=== PATIENT | male | born 1975 | race Two or more races ===

== ENCOUNTER 2019-05-03 06:22 | Emergency (ER) | payer OTHER ==
--- NOTE | 2019-05-03 07:15 | EDM.PDOC ---
ED HPI GENERAL MEDICAL PROBLEM - General Chief Complaint: Flank Pain Stated Complaint: flank pain Time Seen by Provider: 05/03/19 07:00 Source of Information: Reports: Patient History Limitations: Reports: No Limitations - History of Present Illness INITIAL COMMENTS - FREE TEXT/NARRATIVE: Patient comes to ER for flank pain on right. STarted one week ago while he was working on a car. Constant over the week, did not move in location. No radiation of pain. This morning became severely sharp/worst pain he has ever had. Arrived to ER, went to bathroom to give UA sample. Pain started to improve significantly while he was urinating. Mild nausea, no emesis. Small amount loose stool last night. No fevers/chills. No other accompanying symptoms over the week. Denies significant past medical history. No hematuria/frequency noted. No history of kidney stones. Eating/drinking do not appear to have significant impact on the pain. No change in pain with bowel movements. Changing body position/movement does not impact pain level. Right Flank Pain Score (Numeric/FACES): 9 - Related Data Allergies Allergy/AdvReac Type Severity Reaction Status Date / Time No Known Allergies Allergy Verified 05/03/19 06:33 Home Meds: Home Meds . [No Known Home Meds] 05/03/19 [History] Past Medical History Musculoskeletal History: Reports: Other (See Below) (history of herniated disc/ back surgery) Social & Family History - Tobacco Use Smoking Status *Q: Current Every Day Smoker - Caffeine Use Caffeine Use: Reports: Soda - Alcohol Use Alcohol Use History: Yes Days Per Week of Alcohol Use: 7 - Recreational Drug Use Recreational Drug Type: Reports: Marijuana/Hashish ED ROS GENERAL - Review of Systems Review Of Systems: ROS reveals no pertinent complaints other than HPI. ED EXAM, GENERAL - Physical Exam Exam: See Below Exam Limited By: No Limitations General Appearance: Alert, WD/WN, No Apparent Distress Eye Exam: Bilateral Eye: EOMI, PERRL Nose: No: Nasal Deformity, Nasal Swelling, Nasal Drainage Throat/Mouth: Normal Inspection, Normal Voice, No Airway Compromise Head: Atraumatic, Normocephalic Neck: Supple, Non-Tender, Full Range of Motion Respiratory/Chest: No Respiratory Distress, Lungs Clear, Normal Breath Sounds, No Accessory Muscle Use, Chest Non-Tender Cardiovascular: Regular Rate, Rhythm, No Murmur GI/Abdominal: Normal Bowel Sounds, Soft, Non-Tender, No Distention, No Abnormal Bruit (Male) Exam: Deferred Rectal (Males) Exam: Deferred Back Exam: No: CVA Tenderness (L), CVA Tenderness (R), Muscle Spasm, Paraspinal Tenderness, Vertebral Tenderness Extremities: Normal Inspection, Normal Capillary Refill Neurological: Alert, Oriented, Normal Cognition, Normal Gait, No Motor/Sensory Deficits Psychiatric: Normal Affect, Normal Mood Skin Exam: Warm, Dry, Intact, Normal Color Course - Vital Signs Last Recorded V/S: Last Vital Signs Temp 36.6 C 05/03/19 06:23 Pulse 72 05/03/19 06:23 Resp 24 H 05/03/19 06:23 BP 112/73 05/03/19 06:23 Pulse Ox 99 05/03/19 06:23 - Orders/Labs/Meds Orders: Active Orders 24 hr Category Date Time Status Abdomen Pelvis w Cont [CT] Stat Exams 05/03/19 09:07 Taken Abdomen Pelvis wo Cont [CT] Stat Exams 05/03/19 07:09 Taken Sodium Chloride 0.9% [Saline Flush] Med 05/03/19 07:29 Active 10 ml FLUSH ASDIRECTED PRN Saline Lock Insert [OM.PC] Routine Oth 05/03/19 07:29 Ordered Medication Orders Sodium Chloride (Saline Flush) 10 ml FLUSH ASDIRECTED PRN PRN Reason: Keep Vein Open Last Admin: 05/03/19 07:45 Dose: 10 ml Labs: Laboratory Tests 05/03/19 05/03/19 05/03/19 Range/Units 06:42 06:50 06:50 WBC 7.1 (4.0-10.2) K/uL RBC 5.58 H (4.33-5.41) M/uL Hgb 15.4 (13.1-16.8) g/dL Hct 45.7 (39.0-49.0) % MCV 81.9 L (84.0-98.0) fL MCH 27.6 L (28.2-33.3) pg MCHC 33.7 (31.7-36.0) g/dL RDW 13.7 (11.2-14.1) % Plt Count 179 (150-350) K/uL Neut % (Auto) 62.8 (45.0-80.0) % Lymph % (Auto) 27.9 (10.0-50.0) % Sunflower % (Auto) 7.5 (2.0-14.0) % Eos % (Auto) 1.5 (0.0-5.0) % Baso % (Auto) 0.3 (0.0-2.0) % Neut # (Auto) 4.46 (1.40-7.00) K/uL Lymph # (Auto) 1.98 (0.50-3.50) K/uL Sunflower # (Auto) 0.53 (0.00-1.00) K/uL Eos # (Auto) 0.11 (0.00-0.50) K/uL Baso # (Auto) 0.02 (0.00-0.20) K/uL Sodium 141 (136-145) mmol/L Potassium 3.7 (3.5-5.1) mmol/L Chloride 105 (98-107) mmol/L Carbon Dioxide 28.0 (21.0-32.0) mmol/L BUN 17 (7-18) mg/dL Creatinine 0.96 (0.51-1.17) mg/dL Est Cr Clr Drug Dosing 103.49 mL/min Estimated GFR (MDRD) > 60 mL/min Glucose 113 H (74-106) mg/dL Lactic Acid (0.4-2.0) mmol/L Calcium 8.7 (8.5-10.1) mg/dL Total Bilirubin 0.6 (0.2-1.0) mg/dL AST 22 (15-37) U/L ALT 30 (12-78) U/L Alkaline Phosphatase 74 (46-116) IU/L Total Protein 7.1 (6.4-8.2) g/dL Albumin 3.8 (3.4-5.0) g/dL Specimen Type Urinblad Urine Color Yellow Urine Appearance Clear Urine pH 5.5 (5.0-9.0) Ur Specific [place] 1.025 (1.005-1.030) Urine Protein Negative (NEGATIVE) mg/dL Urine Glucose (UA) Negative (NEGATIVE) mg/dL Urine Ketones Negative (NEGATIVE) mg/dL Urine Occult Blood Small H (NEGATIVE) Urine Nitrite Negative (NEGATIVE) Urine Bilirubin Negative (NEGATIVE) Urine Urobilinogen 0.2 (0.2-1.0) E.U./dL Ur Leukocyte Esterase Negative (NEGATIVE) Urine RBC 0-5 /HPF Urine WBC 0-5 /HPF Ur Epithelial Cells Few /LPF Amorphous Sediment Moderate H (0/HPF) /HPF Urine Bacteria Rare (NONE TO FEW) /HPF Urine Mucus Moderate H (NEGATIVE) /LPF 05/03/19 Range/Units 06:50 WBC (4.0-10.2) K/uL RBC (4.33-5.41) M/uL Hgb (13.1-16.8) g/dL Hct (39.0-49.0) % MCV (84.0-98.0) fL MCH (28.2-33.3) pg MCHC (31.7-36.0) g/dL RDW (11.2-14.1) % Plt Count (150-350) K/uL Neut % (Auto) (45.0-80.0) % Lymph % (Auto) (10.0-50.0) % Sunflower % (Auto) (2.0-14.0) % Eos % (Auto) (0.0-5.0) % Baso % (Auto) (0.0-2.0) % Neut # (Auto) (1.40-7.00) K/uL Lymph # (Auto) (0.50-3.50) K/uL Sunflower # (Auto) (0.00-1.00) K/uL Eos # (Auto) (0.00-0.50) K/uL Baso # (Auto) (0.00-0.20) K/uL Sodium (136-145) mmol/L Potassium (3.5-5.1) mmol/L Chloride (98-107) mmol/L Carbon Dioxide (21.0-32.0) mmol/L BUN (7-18) mg/dL Creatinine (0.51-1.17) mg/dL Est Cr Clr Drug Dosing mL/min Estimated GFR (MDRD) mL/min Glucose (74-106) mg/dL Lactic Acid 0.9 (0.4-2.0) mmol/L Calcium (8.5-10.1) mg/dL Total Bilirubin (0.2-1.0) mg/dL AST (15-37) U/L ALT (12-78) U/L Alkaline Phosphatase (46-116) IU/L Total Protein (6.4-8.2) g/dL Albumin (3.4-5.0) g/dL Specimen Type Urine Color Urine Appearance Urine pH (5.0-9.0) Ur Specific [place] (1.005-1.030) Urine Protein (NEGATIVE) mg/dL Urine Glucose (UA) (NEGATIVE) mg/dL Urine Ketones (NEGATIVE) mg/dL Urine Occult Blood (NEGATIVE) Urine Nitrite (NEGATIVE) Urine Bilirubin (NEGATIVE) Urine Urobilinogen (0.2-1.0) E.U./dL Ur Leukocyte Esterase (NEGATIVE) Urine RBC /HPF Urine WBC /HPF Ur Epithelial Cells /LPF Amorphous Sediment (0/HPF) /HPF Urine Bacteria (NONE TO FEW) /HPF Urine Mucus (NEGATIVE) /LPF Meds: Medications Generic Name Dose Route Start Last Admin Trade Name Freq PRN Reason Stop Dose Admin Sodium Chloride 10 ml 05/03/19 07:29 05/03/19 07:45 Saline Flush FLUSH 10 ml ASDIRECTED PRN Administration Keep Vein Open Discontinued Medications Generic Name Dose Route Start Last Admin Trade Name Freq PRN Reason Stop Dose Admin Diatrizoate Meglum/Diatrizoate Sod 30 ml 05/03/19 09:25 05/03/19 10:27 Gastrografin 37% PO 05/03/19 09:26 30 ml ONETIME ONE Administration Sodium Chloride 1,000 mls @ 999 mls/hr 05/03/19 07:31 05/03/19 07:38 Normal Saline IV 05/03/19 08:31 999 mls/hr .BOLUS ONE Administration Iopamidol 100 ml 05/03/19 10:25 05/03/19 10:27 Isovue-300 (61%) IVPUSH 05/03/19 10:26 100 ml ONETIME ONE Administration Ketorolac Tromethamine 10 mg 05/03/19 07:17 05/03/19 11:09 Toradol PO 05/03/19 07:18 Not Given ONETIME ONE Ketorolac Tromethamine 30 mg 05/03/19 07:30 05/03/19 07:43 Toradol IVPUSH 05/03/19 07:31 30 mg ONETIME ONE Administration Morphine Sulfate 2 mg 05/03/19 09:10 Morphine IVPUSH 05/03/19 09:11 ONETIME ONE Ondansetron HCl 4 mg 05/03/19 07:30 05/03/19 07:41 Zofran IVPUSH 05/03/19 07:31 4 mg ONETIME ONE Administration Tamsulosin HCl 0.4 mg 05/03/19 07:30 05/03/19 07:47 Flomax PO 05/03/19 07:31 0.4 mg ONETIME ONE Administration - Radiology Interpretation Free Text/Narrative:: Plain CT unremarkable for acute changes/kidney stones/hydro per Radiology. This was followed by a CT with contrast. No effusions, gallbladder/biliary disease, pancreatic changes/appendicitis, ischemia bowel were noted. Patient noted to have probable small simple cysts within right kidney/right liver, however no acute worrisome changes noted by Radiology. - Re-Assessments/Exams Free Text/Narrative Re-Assessment/Exam: UA/CBC/Chem requested. After discussing differential with patient, he desired CT study. Noncontrast study ordered as patient's history was suggestive of kidney stone. 05/03/19 12:[address] did not show any evidence of stone/hydronephrosis. Patient still complaining of 4/10 right flank discomfort. Discussed negative results of CT with patient, along with unremarkable lab studies. Reviewing CT, it was noted that he had reasonably large amount of stool, however this was not addressed as problematic by Radiology. We reviewed the differential of multiple reasons for flank pain, including radicular pain, GI disease, renal disease. Patient does have severe changes at L5S1 but this is below level of flank pain and he denies any radicular complaints to lower legs such as weakness/numbness/bowel or bladder changes. Lactic acid was added to labs and was negative. Patient elected to have contrast CT performed to more fully rule out other possible causes of the flank pain. This to showed no acute obvious abnormalities. Simple cysts noted by Radiology but no recommendation for need for follow up made. Patient became pain-free while undergoing prep for second CT study and remained pain-free. Not noted to pass an obvious kidney stone while in ER, however he did go to the bathroom without telling anyone early in stay and urinated without a strainer present. Given the history/exam/ER workup, colicky pain from constipation cannot be excluded. Kidney stone passage prior to initial CT study also cannot be excluded. Does not appear to musclo/skeletal pain. Plan at this time is to have the patient take MagCitrate to promote a good bowel movement and see if this impacts the pain over the next few days. If pain remains resolved, suspect constipation vs passed kidney stone most likely cause of pain. If pain returns then resolves after Mag Citrate, constipation most likely etiology of pain complaint. If pain continues despite this intervention, patient is instructed to follow up for re-evaluation and further planning. Precautions reviewed prior to discharge. Patient has no primary provider. He was made aware of the simple cysts noted on CT and to be aware of them down the road/mention them as part of past medical history. A once a year medical screening/preventive health exam was recommended. 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 Go home and drink entire contents of bottle. This will promote a good bowel movement. You may experience additional cramping and discomfort due to the Mag Citrate. Take the Tramadol one tablet every 6 hours to help with any pain. You may also take Tylenol or Ibuprofen with the Tramadol. Recommend taking 1/2 a bottle of Magnesium Citrate tomorrow, and the remaining half on Saturday to make certain that all stool has flushed through. If your flank pain returns/does not resolve after all of this, please get rechecked. lead performance support analyst Preparation H cream to use in the rectal area as you may have irritation from using the MagCitrate. Follow up as needed if any problems or concerns arise. - My Orders Last 24 Hours: My Active Orders 05/03/19 07:09 Abdomen Pelvis wo Cont [CT] Stat 05/03/19 07:29 Sodium Chloride 0.9% [Saline Flush] 10 ml FLUSH ASDIRECTED PRN Saline Lock Insert [OM.PC] Routine 05/03/19 09:07 Abdomen Pelvis w Cont [CT] Stat - Assessment/Plan Last 24 Hours: My Active Orders 05/03/19 07:09 Abdomen Pelvis wo Cont [CT] Stat 05/03/19 07:29 Sodium Chloride 0.9% [Saline Flush] 10 ml FLUSH ASDIRECTED PRN Saline Lock Insert [OM.PC] Routine 05/03/19 09:07 Abdomen Pelvis w Cont [CT] Stat
[2019-05-03] MEDS ORDERED: Ketorolac 10 MG Tab PO ONE (07:17)
[2019-05-03 07:23] LABS: CHLORIDE,CL 105 mmol/L (98-107); SODIUM,NA 141 mmol/L (136-145)
[2019-05-03] MEDS ORDERED: Sodium Chloride 0.9% 10 ML Syringe FLUSH PRN (07:29)
[2019-05-03] MEDS ORDERED: Ondansetron 4 MG/2 ML SDV IVPUSH ONE (07:30)
[2019-05-03] MEDS ORDERED: Ketorolac 30 MG/ML SDV IVPUSH ONE (07:30)
[2019-05-03] MEDS ORDERED: Tamsulosin 0.4 MG Cap.ER PO ONE (07:30)
[2019-05-03] MEDS ORDERED: Sodium Chloride 0.9% 1,000 ML IV ONE (07:31)
[2019-05-03] MEDS ORDERED: Morphine 2 MG/ML Syringe IVPUSH ONE (09:10)
[2019-05-03] MEDS ORDERED: Diatrizoate Meglumine/Diatrizoate Sodium 37% 30 ML Bottle PO ONE (09:25)
[2019-05-03] MEDS ORDERED: Iopamidol 612 MG/ML 100 ML Bottle IVPUSH ONE (10:25)
== END 2019-05-03 12:10 | disposition home or self-care (01) ==
LOC: LL.ED 06:22
DX: R10.9 Unspecified abdominal pain (principal); F17.200 Nicotine dependence, unspecified, uncomplicated
CPT/HCPCS: 36415; 74176; 74177; 80053; 81001; 83605; 85025; 96361; 96374; 96375; 99284; A9270; J1885; J2405; J7030; Q9963; Q9967

== ENCOUNTER 2022-12-27 09:22 | Day surgery (SDC) | payer OTHER ==
[~2022-12-27 09:22] MED LIST: Midazolam 1 MG/ML 2 ML SDV ONE; Propofol 200 MG/20 ML SDV ONE
[2022-12-27] MEDS ORDERED: Lactated Ringers 1,000 ML IV SCH (09:30)
[2022-12-27] MEDS ORDERED: Sodium Chloride 0.9% 10 ML Syringe FLUSH PRN (09:30)
== END 2022-12-27 12:05 | disposition home or self-care (01) ==
LOC: LL.SDS 09:22
PROVIDERS: ATTEND Surgery
DX: Z12.11 Encounter for screening for malignant neoplasm of colon (principal); R31.9 Hematuria, unspecified; Z87.891 Personal history of nicotine dependence; Z80.0 Family history of malignant neoplasm of digestive organs
CPT/HCPCS: J7120